=== PATIENT | male | born 1950 | race Caucasian/White ===

== ENCOUNTER 2023-11-20 14:03 | Emergency (ER) | payer OTHER ==
[~2023-11-20] VITALS: Ht 165.1 cm; Wt 85.5 kg
[2023-11-20 14:09] VITALS: TEMP 98.4
[2023-11-20 15:38] LABS: BASOPHILS # (AUTO) 0.1 X10'3 (0-0.2); BASOPHILS % (AUTO) 0.9 % (0-1); EOSINOPHILS # (AUTO) 0.1 X10'3 (0-0.9); EOSINOPHILS % (AUTO) 1.6 % (0-6); HEMATOCRIT 39.5 % (42.0-52.0); HEMOGLOBIN 13.3 g/dl (14.0-17.9); LYMPHOCYTES # (AUTO) 0.8 X10'3 (1.1-4.8); LYMPHOCYTES % (AUTO) 8.6 % (21-51); MEAN CORPUSCULAR HGB CONC 33.8 g/dL (33.0-36.5); MEAN CORPUSCULAR VOLUME 91.7 FL (78-98); MEAN PLATELET VOLUME 8.7 FL (7.4-10.4); MONOCYTES # (AUTO) 0.7 X10'3 (0-0.9); NEUTROPHILS # (AUTO) 7.7 X10'3 (1.8-7.7); NEUTROPHILS % (AUTO) 81.9 % (42-75); PLATELET COUNT 286 X10'3 (140-440); RED BLOOD COUNT 4.31 X10'6 (4.70-6.10); RED CELL DISTRIBUTION WIDTH 13.5 % (11.5-14.5); WHITE BLOOD COUNT 9.4 X10'3 (4.5-11.0)
[2023-11-20 15:47] LABS: ALBUMIN 2.9 G/DL (3.4-5.0); ANION GAP 8 (8-16); BLOOD UREA NITROGEN 9 MG/DL (7-18); BUN/CREATININE RATIO 8.8 (10.0-20.0); CALCIUM 8.8 MG/DL (8.5-10.1); CHLORIDE 103 MMOL/L (99-107); CREATININE 1.02 MG/DL (0.60-1.10); GLUCOSE 89 MG/DL (70-104); LIPASE 15 U/L (16-77); SODIUM 138 MMOL/L (135-145); TOTAL CARBON DIOXIDE 27.1 MMOL/L (24-32); eCRCL 56 ML/MIN; eGFR 72 ML/MIN
[2023-11-20] MEDS ORDERED: iohexol 300mg/ml 100ml inj. ONE (17:25)
[2023-11-20] MEDS: acetaminophen 1,000mg/100ml IV 100 ML IV STA (17:26)
[2023-11-20] MEDS: normal saline 1000ML IV soln IVB ONE (17:26)
[2023-11-20 17:44] LABS: BILIRUBIN,URINE SMALL (Neg); CLARITY,URINE CLOUDY (Clear); COLOR,URINE YELLOW (Yellow); GLUCOSE, URINE NEGATIVE (Neg); KETONES,URINE TRACE mg/dl (Neg); LEUKOCYTE ESTERASE ,URINE SMALL (Neg); NITRITES, URINE POSITIVE (Neg); OCCULT BLOOD,URINE MODERATE (Neg); PROTEIN,URINE 30 mg/dl (Neg)
[2023-11-20 18:09] LABS: UA COLLECTION TYPE VOIDED
[2023-11-20 18:10] LABS: MUCUS STRANDS MANY /LPF (Neg); WBC CLUMPS,URINE MANY /HPF (NEGATIVE); WBC,URINE TNTC /HPF (0-4)
[2023-11-20 18:11] LABS: BACTERIA,URINE 2+ /HPF (Neg); SQUAMOUS EPITHELIAL CELL,UR FEW /LPF (FEW)
[2023-11-20 18:22] VITALS: BP 135/76; PULSE 90
[2023-11-20] MEDS: CefTRIAXone/D5W-Rocephin 1gm 50 ML IV ONE (18:42)
[2023-11-20] MEDS ORDERED: sodium polystyrene sulfonate ENEMA 30gm/120ml RC ONE ×3 (18:45→19:10)
[2023-11-20] MEDS ORDERED: POLY119P2 PO (18:46)
[2023-11-20] MEDS ORDERED: CEPH-585 PO (18:46)
[2023-11-20] MEDS ORDERED: bisacodyl 10mg suppository rectal RC ONE (19:00)
[2023-11-20] MEDS: bisacodyl 10mg suppository rectal RC STA (19:29)
[2023-11-20] MEDS: mineral oil 133ml enema RC ONE (19:29)
[2023-11-20 19:45] VITALS: RESP 14; O2SAT 98
== END 2023-11-20 19:46 | disposition home or self-care (01) ==
LOC: ER 14:04
DX: N39.0 Urinary tract infection, site not specified (principal); K59.00 Constipation, unspecified
CPT/HCPCS: 36415; 74022; 74177; 80048; 81001; 83690; 85025; 87077; 87088; 87186; 96365; 96367; 99285; J0131; J0696; J3490; J7030; Q9967; 96361; 96375